=== PATIENT | female | born 1950 | race Caucasian/White ===

== ENCOUNTER 2024-05-21 05:40 | Observation (INO) | payer OTHER ==
[2024-05-19 11:58] LABS: BASOPHILS # (AUTO) 0.07 K/uL (0.00-0.20); BASOPHILS % (AUTO) 0.8 % (0.0-5.0); EOSINOPHILS # (AUTO) 0.24 K/uL (0.00-0.70); EOSINOPHILS % (AUTO) 2.7 % (0.0-8.0); IMMATURE GRANULOCYTE ABSOLUTE 0.03 K/uL (0-1); LYMPHOCYTES # (AUTO) 2.9 K/uL (1.0-4.8); LYMPHOCYTES % (AUTO) 32.8 % (21.0-51.0); MEAN CORPUSCULAR HEMOGLOBIN 31.7 pg (27.0-33.0); MEAN CORPUSCULAR VOLUME 93.3 fL (79-99); MONOCYTES # (AUTO) 0.8 K/uL (0.1-1.0); MONOCYTES % (AUTO) 8.7 % (3.0-13.0); NEUTROPHILS # (AUTO) 4.9 K/uL (1.8-7.7); NEUTROPHILS % (AUTO) 54.7 % (40.0-77.0); PLATELET COUNT (AUTO) 332 K/uL (130-400); RED BLOOD CELL COUNT(AUTO) 4.61 MIL/uL (4.00-5.50); RED CELL DISTRIBUTION WIDTH 13.3 % (11.0-15.5); WHITE BLOOD COUNT (AUTO) 8.9 K/uL (4.8-10.8)
[2024-05-19 12:17] LABS: B-TYPE NATRIURETIC PEPTIDE 223 pg/mL (0-100)
[2024-05-19 12:22] LABS: CREATININE 0.9 mg/dL (0.5-1.0); POTASSIUM 5.1 mmol/L (3.5-5.1)
[2024-05-19 12:28] LABS: INR 0.99 (0.85-1.15); PARTIAL THROMBOPLASTIN TIME 25.9 SEC (26.3-35.5); PROTHROMBIN TIME 10.5 SEC (9.6-11.6)
[2024-05-19 12:58] VITALS: BP 134/76; PULSE 63; RESP 18
[2024-05-21] VITALS (14 sets, daily range): BP systolic 95–137; BP diastolic 50–85; PULSE 57–100; RESP 16–20; O2SAT 98
[~2024-05-21] VITALS: Ht 152.4 cm; Wt 53.5 kg
[~2024-05-21 05:40] MED LIST: ATOR40TA71 PO; CLOP75TA32 PO; COQ10 PO; FURO40TA5 PO; MAGNESIUM MALATE PO; MELA1TAB73 PO; METO-391 PO; MVI PO; OMEGA 3 PO; VIT K PO; [UNRECOGNIZED DRUG - OTHER] PO
[2024-05-21] MEDS: 0.9%NACL 1000ML 1,000 ML IV ONE (06:37)
[2024-05-21] MEDS ORDERED: LIDOCAINE HCL 400MG/20ML VIAL ONE (07:34)
[2024-05-21] MEDS ORDERED: FENTANYL CITRATE PF 50 MCG/1 ML 2ML VIAL ONE ×2 (07:35→09:42)
[2024-05-21] MEDS ORDERED: HEPARIN 10,000 UNIT/10ML (1,000 UNIT/ML) VIAL ONE (07:35)
[2024-05-21] MEDS ORDERED: NITROGLYCERIN 50MG VIAL ONE (07:35)
[2024-05-21] MEDS ORDERED: MIDAZOLAM HCL 1 MG/ML 2ML VIAL ONE ×2 (07:35→09:53)
[2024-05-21] MEDS ORDERED: IOHEXOL 350 MG/ML 100ML INFUS..BTL IV ONE (07:35)
[2024-05-21] MEDS ORDERED: DEXTROSE 50%-WATER 50 ML DISP.SYRIN IV PRN (09:30)
[2024-05-21] MEDS ORDERED: GLUCAGON 1MG KIT 1 MG ML IM PRN (09:30)
[2024-05-21] MEDS: 0.9%NACL 1000ML 1,000 ML IV SCH (09:30)
[2024-05-21] MEDS ORDERED: NOREPINEPHRINE BITARTRATE 1 MG/1 ML ML IV ONE (09:55)
[2024-05-21 10:11] LABS: MEAN CORPUSCULAR HEMOGLOBIN 32.3 pg (27.0-33.0); MEAN CORPUSCULAR HGB CONC 34.3 g/dL (32.0-36.0); MEAN CORPUSCULAR VOLUME 94.3 fL (79-99); RED BLOOD CELL COUNT(AUTO) 3.71 MIL/uL (4.00-5.50); RED CELL DISTRIBUTION WIDTH 13.3 % (11.0-15.5)
[2024-05-21] MEDS: ALPRAZOLAM 0.5 MG TABLET PO PRN (11:54)
[2024-05-21 16:15] LABS: HEMATOCRIT 31.8 % (36-48); MEAN CORPUSCULAR HEMOGLOBIN 32.5 pg (27.0-33.0); MEAN CORPUSCULAR HGB CONC 34.9 g/dL (32.0-36.0); RED BLOOD CELL COUNT(AUTO) 3.42 MIL/uL (4.00-5.50); RED CELL DISTRIBUTION WIDTH 13.3 % (11.0-15.5); WHITE BLOOD COUNT (AUTO) 11.4 K/uL (4.8-10.8)
[2024-05-21] MEDS: (Melatonin/Pyridoxine HCl (B6) (Melatonin 10 mg Tablet) PO SCH (21:00)
[2024-05-21] MEDS: ATORVASTATIN 40 MG TABLET PO SCH (21:49)
[2024-05-21] MEDS: ACETAMINOPHEN 325 MG TAB PO PRN (23:02)
[2024-05-21] MEDS: 0.9%NACL 10ML VIAL IVP SCH (23:20)
[2024-05-22 03:24] LABS: HEMATOCRIT 30.3 % (36-48); MEAN CORPUSCULAR HEMOGLOBIN 32.7 pg (27.0-33.0); MEAN CORPUSCULAR HGB CONC 34.3 g/dL (32.0-36.0); MEAN CORPUSCULAR VOLUME 95.3 fL (79-99); RED BLOOD CELL COUNT(AUTO) 3.18 MIL/uL (4.00-5.50); RED CELL DISTRIBUTION WIDTH 13.3 % (11.0-15.5); WHITE BLOOD COUNT (AUTO) 10.1 K/uL (4.8-10.8)
[2024-05-22 03:32] LABS: CREATININE 0.8 mg/dL (0.5-1.0); POTASSIUM 5.2 mmol/L (3.5-5.1)
[2024-05-22 03:58] VITALS: BP 93/58; PULSE 73; RESP 20
[2024-05-22 08:00] VITALS: O2SAT 98
[2024-05-22 08:34] VITALS: BP 128/69; PULSE 81; RESP 18
[2024-05-22] MEDS: METOPROLOL SUCCINATE 50 MG TAB.SR.24H PO SCH (09:20)
[2024-05-22] MEDS: CLOPIDOGREL 75MG TAB PO SCH (09:20)
[2024-05-22] MEDS: FUROSEMIDE 40 MG TABLET PO SCH (09:20)
== END 2024-05-22 12:10 | disposition home or self-care (01) ==
LOC: DAH 05:40 → DAHIP 05:41 → 2DH 11:30
PROVIDERS: ADMIT Internal Medicine Cardiovascular Disease; ATTEND Internal Medicine Cardiovascular Disease
DX: I25.10 Atherosclerotic heart disease of native coronary artery without angina pectoris (principal); I47.20 Ventricular tachycardia, unspecified; I49.3 Ventricular premature depolarization; I42.0 Dilated cardiomyopathy; I25.5 Ischemic cardiomyopathy; I11.0 Hypertensive heart disease with heart failure; I50.22 Chronic systolic (congestive) heart failure; I48.0 Paroxysmal atrial fibrillation; I73.9 Peripheral vascular disease, unspecified; D62 Acute posthemorrhagic anemia; I70.8 Atherosclerosis of other arteries; M79.81 Nontraumatic hematoma of soft tissue; E78.00 Pure hypercholesterolemia, unspecified; F41.9 Anxiety disorder, unspecified; E66.01 Morbid (severe) obesity due to excess calories; E78.2 Mixed hyperlipidemia; E55.9 Vitamin D deficiency, unspecified; K76.0 Fatty (change of) liver, not elsewhere classified; F17.200 Nicotine dependence, unspecified, uncomplicated; Z86.73 Personal history of transient ischemic attack (TIA), and cerebral infarction without residual deficits; Z95.5 Presence of coronary angioplasty implant and graft; Z79.899 Other long term (current) drug therapy
CPT/HCPCS: 80048 ×2; 83880; 85025; 85610; 85730; 36415 ×3; 71045; 93005; 75716; 92978; 93458; 85347; 85027 ×3; 86850; 86900; 86901; 86923; 76882; C1887 ×2; C1769 ×4; C1894 ×4; C1760 ×3; C1753; Q9965 ×3; G0378 ×25; J3010 ×2; J3490 ×3; J7030; J1644 ×4; J2250 ×2; Q9967; A4215; A4223 ×3; A4222; A4221; A4663; A4216; A4606; 75625; 92979; 99156; 99157